=== PATIENT | male | born 1960 | race Caucasian/White ===

== ENCOUNTER 2021-12-28 14:31 | Emergency (ER) | payer OTHER ==
[2021-12-28 16:09] LABS: Absolute Lymphocytes (CBC) 2.3 K/uL (0.7-4.9); Hematocrit 41.8 % (39.6-49.0); Lymphocytes % 30.3 % (15.3-44.8); RBC Red Blood Cell Count 4.79 M/uL (4.33-5.43)
[2021-12-28 16:10] LABS: Protime INR 1.03
[2021-12-28 16:32] LABS: ALT/SGPT 57 U/L (12-78); AST/SGOT 33 U/L (15-37); Albumin 3.5 g/dL (3.4-5.0); Alkaline Phosphatase 105 U/L (45-117); BUN Blood Urea Nitrogen 18 mg/dL (7-18); Bicarbonate 25 mmol/L (21-32); Bilirubin Total 0.3 mg/dL (0.2-1.0); Glucose Level 110 mg/dL (74-106); Magnesium 2.2 mg/dL (1.8-2.4); NT PRO-BNP 7 pg/mL (<125); Potassium 3.8 mmol/L (3.5-5.1); Protein, Total 7.5 g/dL (6.4-8.2); Sodium Level 136 mmol/L (136-145)
[2021-12-28 16:36] LABS: Bilirubin Direct < 0.1 mg/dL (0-0.2)
--- NOTE | 2021-12-28 16:38 | RAD REPORT ---
EXAM DESCRIPTION: RAD - Chest Single View - 12/28/2021 3:55 pm CLINICAL HISTORY: CONGESTION Chest pain. COMPARISON: No comparisons FINDINGS: Portable technique limits examination quality. Increased opacification in the left retrocardiac region could indicate atelectasis or developing pneu monia. The lungs are otherwise clear. The heart is normal in size. No displaced fractures.
--- NOTE | 2021-12-28 17:08 | ER ---
Nurse's Notes [facility] Name: Steven Case Age: 61 yrs Sex: Male : 1960 Arrival Date: 12/28/2021 Time: 14:36 Bed 8 Private MD: Diagnosis: Chronic pain due to trauma-Right lateral chest wall pain;Other pneumonia, unspecified organism Presentation: 12/28 15:19 Chief complaint: Chief complaint: Patient states: Cough for 4 days. Rolled over in bed ll1 two nights ago and had pain to R rib cage area since. States he passed out 6 times Sunday and Sunday, no passing out the past two days. 15:19 Coronavirus screen: Vaccine status: Patient reports being unvaccinated. Client denies ll1 travel out of the [place] in the last 14 days. congestion, cough unrelated to allergies, difficulty breathing, Client presents with at least one sign or symptom that may indicate coronavirus-19. Standard/surgical mask placed on the client. Ebola Screen: Patient denies travel to an Ebola-affected area in the 21 days before illness onset. Initial Sepsis Screen: Does the patient meet any 2 criteria? No. Patient's initial sepsis screen is negative. Does the patient have a suspected source of infection? Yes: Productive cough/pneumonia. Risk Assessment: Do you want to hurt yourself or someone else? Patient reports no desire to harm self or others. Onset of symptoms was December 25, 2021. 15:19 Method Of Arrival: Ambulatory ll1 15:19 Acuity: TAYLOR 3 ll1 Triage Assessment: 15:20 General: Appears uncomfortable, Behavior is calm, cooperative, appropriate for age. ll1 Pain: Complains of pain in R anterior ribs Quality of pain is described as aching, Alleviated by rest, Aggravated by cough. Neuro: No deficits noted. Cardiovascular: No deficits noted. Respiratory: Reports cough that is pain with cough Airway is patent Trachea midline Respiratory effort is even, unlabored, Respiratory pattern is regular, symmetrical. Musculoskeletal: Reports pain in R lower anterior ribs. Historical: - Allergies: 15:17 No Known Allergies; ll1 - PMHx: 15:17 Hypertensive disorder; Hypercholesterolemia; COPD; bladder control med; seasonal ll1 allergies; Restless legs; Depressive disorder; Arthritis; CPAP; - PSHx: 15:17 hernia repair; ll1 - Immunization history:: Client reports having NOT received the Covid vaccine. - Social history:: Smoking status: Patient/guardian denies using tobacco, the patient reports quitting approximately 28 years ago. - Family history:: not pertinent. Screenin:29 Abuse screen: Denies threats or abuse. Denies injuries from another. Nutritional ld1 screening: No deficits noted. Tuberculosis screening: No symptoms or risk factors identified. Fall Risk None identified. Assessment: 16:21 Reassessment: No changes from previously documented assessment. Patient and/or family ll1 updated on plan of care and expected duration. Pain level reassessed. Patient is alert, oriented x 3, equal unlabored respirations, skin warm/dry/pink. Vital Signs: 15:19 BP 135 / 86; Pulse 85; Resp 20; Temp 99.5; Pulse Ox 98% on R/A; Weight 111.13 kg; ll1 Height 6 ft. 3 in. (190.50 cm); Pain 3/10; 16:20 BP 129 / 84; Pulse 79; Resp 18; Pulse Ox 96% on R/A; ll1 15:19 Body Mass Index 30.62 (111.13 kg, 190.50 cm) ll1 ED Course: 14:36 Patient arrived in ED. kz 14:38 Lamonte Soto MD is Attending Physician. ma2 15:10 Arm band placed on Patient placed in an exam room, on a stretcher. ll1 15:19 Avinash Mann, RN is Primary Nurse. ll1 15:22 Triage completed. ll1 15:50 Inserted saline lock: 22 gauge in right forearm, using aseptic technique. Blood ll1 collected. 15:54 XRAY Chest (1 view) In Process Unspecified. EDMS 17:29 No provider procedures requiring assistance completed. IV discontinued, intact, ld1 bleeding controlled, No redness/swelling at site. 17:30 Patient has correct armband on for positive identification. Placed in gown. Bed in low ld1 position. Call light in reach. Side rails up X2. quality assurance monitor body on. Pulse ox on. NIBP on. Door closed. Noise minimized. Warm blanket given. Administered Medications: No medications were administered Outcome: 17:07 Discharge ordered by . ma2 17:29 Discharged to home ambulatory. ld1 17:29 Condition: stable 17:29 Discharge instructions given to patient, Instructed on discharge instructions, follow up and referral plans. medication usage, Demonstrated understanding of instructions, follow-up care, medications, Prescriptions given X 2. 17:30 Patient left the ED. ld1 Signatures: Dispatcher [employer] EDMS Lamonte Soto MD MD ma2 Avinash Mann RN RN ll1 Brenda Mcneil RN RN ld1 Winifred Cordero Corrections: (The following items were deleted from the chart) 15:22 15:19 Chief complaint: ll1 ll1
--- NOTE | 2021-12-28 17:08 | EDPHYS ---
Physician Documentation [facility] Name: Steven Case Age: 61 yrs Sex: Male : 1960 Arrival Date: 12/28/2021 Time: 14:36 Bed 8 Private MD: ED Physician Lamonte Soto HPI: 12/28 16:17 This 61 yrs old Male presents to ER via Ambulatory with complaints of RIGHT SIDED RIB ma2 PAIN. 16:17 Patient has been having cough for 1 week, he states that he coughed hard 4 days ago and ma2 suddenly had right-sided lateral chest wall pain, that has been constant since then only hurt when he takes deep breath or cough or move. There is no chest pain or fever. Of note patient states that he does not want his heart to be checked as he knows this is not his heart. And he had normal cardiac work-up done 2 weeks ago. Patient states he had COPD and his cough is usual symptom of his chronic COPD. Historical: - Allergies: 15:17 No Known Allergies; ll1 - PMHx: 15:17 Hypertensive disorder; Hypercholesterolemia; COPD; bladder control med; seasonal ll1 allergies; Restless legs; Depressive disorder; Arthritis; CPAP; - PSHx: 15:17 hernia repair; ll1 - Immunization history:: Client reports having NOT received the Covid vaccine. - Social history:: Smoking status: Patient/guardian denies using tobacco, the patient reports quitting approximately 28 years ago. - Family history:: not pertinent. ROS: 16:17 Constitutional: Negative for fever, chills, and weight loss. ma2 16:17 All other systems are negative. Exam: 16:17 Constitutional: This is a well developed, well nourished patient who is awake, alert, ma2 and in no acute distress. ENT: Nares patent. No nasal discharge, no septal abnormalities noted. Tympanic membranes are normal and external auditory canals are clear. Oropharynx with no redness, swelling, or masses, exudates, or evidence of obstruction, uvula midline. Mucous membranes moist. Neck: Trachea midline, no thyromegaly or masses palpated, and no cervical lymphadenopathy. Supple, full range of motion without nuchal rigidity, or vertebral point tenderness. No Meningismus. Chest/axilla: Tenderness over lateral 10th rib on right side. Skin exam unremarkable no cellulitis or signs of trauma,/confusion. Normal chest wall appearance and motion. Nontender with no deformity. No lesions are appreciated. Cardiovascular: Regular rate and rhythm with a normal S1 and S2. No gallops, murmurs, or rubs. Normal PMI, no JVD. No pulse deficits. Respiratory: Lungs have equal breath sounds bilaterally, clear to auscultation and percussion. No rales, rhonchi or wheezes noted. No increased work of breathing, no retractions or nasal flaring. Abdomen/GI: Soft, non-tender, with normal bowel sounds. No distension or tympany. No guarding or rebound. No evidence of tenderness throughout. Back: No spinal tenderness. No costovertebral tenderness. Full range of motion. MS/ Extremity: Pulses equal, no cyanosis. Neurovascular intact. Full, normal range of motion. Neuro: Awake and alert, GCS 15, oriented to person, place, time, and situation. Cranial nerves II-XII grossly intact. Motor strength 5/5 in all extremities. Sensory grossly intact. Cerebellar exam normal. Normal gait. Vital Signs: 15:19 BP 135 / 86; Pulse 85; Resp 20; Temp 99.5; Pulse Ox 98% on R/A; Weight 111.13 kg; ll1 Height 6 ft. 3 in. (190.50 cm); Pain 3/10; 16:20 BP 129 / 84; Pulse 79; Resp 18; Pulse Ox 96% on R/A; ll1 15:19 Body Mass Index 30.62 (111.13 kg, 190.50 cm) 1 MDM: 15:42 Patient medically screened. nv2 17:06 Differential diagnosis: Blunt Chest Trauma Chest Wall Contusion Chest Wall Injury Rib ma2 Fracture. Data reviewed: vital signs, nurses notes. Counseling: I had a detailed discussion with the patient and/or guardian regarding: the historical points, exam findings, and any diagnostic results supporting the discharge/admit diagnosis, the presence of at least one elevated blood pressure reading (>120/80) during this emergency department visit, the need for outpatient follow up. Response to treatment: the patient's symptoms have markedly improved after treatment. 12/28 15:07 Order name: Basic Metabolic Panel; Complete Time: 16:57 ma2 12/28 15:07 Order name: CBC with Diff; Complete Time: 16:57 nv2 12/28 15:07 Order name: LFT's; Complete Time: 16:57 nv2 12/28 15:07 Order name: Magnesium; Complete Time: 16:57 ma2 12/28 15:07 Order name: NT PRO-BNP; Complete Time: 16:57 nv2 12/28 15:07 Order name: PT-INR; Complete Time: 16:57 nv2 12/28 15:07 Order name: Troponin HS; Complete Time: 16:57 nv2 12/28 15:07 Order name: XRAY Chest (1 view); Complete Time: 16:57 ma2 12/28 15:07 Order name: EKG; Complete Time: 15:08 nv2 12/28 15:07 Order name: Cardiac monitoring; Complete Time: 15:37 nv2 12/28 15:07 Order name: EKG - Nurse/Tech; Complete Time: 15:37 nv2 12/28 15:07 Order name: IV Saline Lock; Complete Time: 15:37 nv2 12/28 15:07 Order name: Labs collected and sent; Complete Time: 15:37 nv2 12/28 15:07 Order name: O2 Per Protocol; Complete Time: 15:37 ma2 12/28 15:07 Order name: O2 Sat Monitoring; Complete Time: 15:37 ma2 Administered Medications: No medications were administered Disposition Summary: 12/28/21 17:07 Discharge Ordered Location: Home ma2 Condition: Stable ma2 Diagnosis - Chronic pain due to trauma - Right lateral chest wall pain ma2 - Other pneumonia, unspecified organism ma2 Followup: ma2 - With: Private Physician - When: Tomorrow - Reason: Wound Recheck, If symptoms return Discharge Instructions: - Discharge Summary Sheet ma2 - Chest Wall Pain ma2 - Community-Acquired Pneumonia, Adult ma2 Forms: - Medication Reconciliation Form ma2 - Thank You Letter ma2 - Antibiotic Education ma2 - Prescription Opioid Use ma2 Prescriptions: - ketorolac 10 mg Oral tablet - take 1 tablet by ORAL route every 4 hours not to exceed 40mg in 24hrs for up to ma2 5 days total use; 20 tablet; Refills: 0, Product Selection Permitted - Zithromax Z-Ian 250 mg Oral Tablet - take 1 tablet by ORAL route as directed for 5 days Day 1 - take two (2) tablets ma2 one time. Day 2, 3, 4 , 5 take one (1) tablet once daily.; 6 tablet; Refills: 0, Product Selection Permitted Signatures: Dispatcher [employer] Lamonte Khan MD MD ma2 Avinash Mann RN RN 1
[2021-12-28 17:36] VITALS: TEMP 99.5
[2021-12-28 17:37] VITALS: BP 129/84; O2SAT 96
== END 2021-12-28 17:30 | disposition home or self-care (01) ==
LOC: ER 14:31
DX: J18.8 Other pneumonia, unspecified organism (principal); J44.9 Chronic obstructive pulmonary disease, unspecified; I10 Essential (primary) hypertension
CPT/HCPCS: 36415; 71045; 80048; 80076; 83735; 83880; 84484; 85025; 85610; 93005; 99284